=== PATIENT | male | born 1970 | race Caucasian/White ===

== ENCOUNTER 2021-05-12 09:39 | Emergency (ER) | payer OTHER ==
[~2021-05-12] VITALS: Ht 180.3 cm; Wt 96.6 kg
[2021-05-12] MEDS ORDERED: OMEPRAZOLE20 MG PO (09:53)
[2021-05-12] MEDS ORDERED: HUMIRA40 MG/0.1 SUB-Q (10:01)
[2021-05-12] MEDS ORDERED: AZATHIOPRINE50 MG PO (10:05)
[2021-05-12] MEDS ORDERED: FLAGYL500 MG PO (13:34)
[2021-05-12] MEDS ORDERED: LEVOFLOXACIN500 MG PO (13:34)
--- NOTE | 2021-05-12 14:48 | EKG ---
[facility] [address] [facility] [place] [address] Signed Sinus tachycardia Otherwise normal ECG No previous ECGs available Confirmed by ANTONELLA ODONNELL MD ([id number]) on 05/12/2021 2:48:07 PM Electronically Signed By: ANTONELLA ODONNELL MD 05/12/21 1448 PATIENT NAME: RAFAEVERTON LEEROY Electrocardiogram DATE OF : 68 PHYSICIAN: ANTONELLA ODONNELL MD REPORT #: [id number] REPORT IS CONFIDENTIAL AND NOT TO BE RELEASED WITHOUT AUTHORIZATION
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
== END 2021-05-12 14:28 | disposition home or self-care (01) ==
LOC: ED 09:39
DX: K81.9 Cholecystitis, unspecified (principal); R07.2 Precordial pain; Z88.5 Allergy status to narcotic agent; Z79.899 Other long term (current) drug therapy
CPT/HCPCS: 71045; 76705; 80053; 81001; 83690; 84484; 85025; 93005; 93010; 99285-25; J7030

== ENCOUNTER 2021-05-14 09:57 | Observation (INO) | payer OTHER ==
[~2021-05-14] VITALS: Ht 180.3 cm; Wt 96.6 kg
[~2021-05-14 09:57] MED LIST: AZATHIOPRINE50 MG PO; FLAGYL500 MG PO; HUMIRA40 MG/0.1 SUB-Q; LEVOFLOXACIN500 MG PO; OMEPRAZOLE20 MG PO
--- OUTSIDE RECORDS SUMMARY | 2021-05-14 10:04 | XMS ---
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 Abigail has no Care Guidelines for this patient. Dimitri VISIT COUNT (12 MO.) [address] [facility] TOTAL 2 NOTE: Visits indicate total known visits. ED/C VISIT TRACKING (12 MO.) 05/14/2021 09:[address] [facility] [place] TYPE: Emergency COMPLAINT: - ABD PAIN 05/12/2021 09:41 [facility] [place] TYPE: Emergency COMPLAINT: - CHEST PAIN, NAUSEA INPATIENT VISIT TRACKING (12 MO.) No inpatient visits to display in this time frame [email or web address]
--- NOTE | 2021-05-14 12:20 | NUR ---
Report recieved from PENELOPE Rose, waiting for results of pt's COVID swab before transfering to Med-Surg floor.
--- NOTE | 2021-05-14 13:01 | NUR ---
ER CALLED TO REPORT THAT THE PT WILL BE GOING DIRECTLY TO THE OR FOR SURGERY AND THEN WILL [facility] FOLLOWING SURGERY.
--- NOTE | 2021-05-14 15:14 | NUR ---
05/14/21 1514 Anyi Barbosa 1510- PT ARRIVES TO PACU NONAROUSABLE TO NOXIOUS STIMULI WITH AN OPA IN PLACE. RESP EVEN AND UNLABORED. OXYGEN SAT HIGH 90'S TO 100% ON 6L VIA MASK.
--- NOTE | 2021-05-14 15:54 | NUR ---
PT. ARRIVED FROM PACU VIA STRETCHER AND REPORT RECEIVED FROM RN. PT. IS ALERT AND ORIENTED. VITALS TAKEN AND PRIMARY RN ARRIVED AND RESUMED CARE.
[2021-05-14] MEDS ORDERED: HYDROCODON-ACE1 EAC8 PO (16:19)
--- NOTE | 2021-05-14 16:20 | NUR ---
PT ARRIVED FROM PACU. PT ALERT AND ORIENTED. VSS. PT ON ROOM AIR, LUNG SOUNDS CLEAR. BOWEL TONES ACTIVE, REPORT OF NAUSEA, GIVEN 4MG ZOFRAN HE RECENTLY RECEIVED 4MG ZOFRAN IN PACU, FOR A TOTAL OF 8MG ZOFRAN. PT WITH LAP SITES X4, SMALL AMOUNT OF SHADOWING TO UPPER RUQ LAP SITE. D5LR INFUSING AT 100ML/HR. PROVIDED WITH RX FOR NORCO TO BE FILLED AT PHARMACY, DISCUSSED THAT PT COULD DISCHARGE IF MEETS CRITERIA AND IS FEELING UP TO LEAVING. RN GHASSAN ASSISTING PT TO BATHROOM.
[2021-05-14] MEDS ORDERED: HUMIRA PEN40 MG/0.4 SUB-Q (16:51)
--- NOTE | 2021-05-14 16:54 | NUR ---
MED REC COMPLETE
[2021-05-14] MEDS ORDERED: BENADRYL25 MG PO (17:20)
--- NOTE | 2021-05-14 18:57 | EKG ---
[facility] [address] [facility] [place], [place] [address] Signed Normal sinus rhythm Normal ECG Confirmed by ANTONELLA ODONNELL MD ([id number]) on 05/14/2021 6:57:39 PM Electronically Signed By: ANTONELLA ODONNELL MD 05/14/21 1857 PATIENT NAME: RAFAEVERTON Electrocardiogram DATE OF : [birth year] PHYSICIAN: ANTONELLA ODONNELL MD REPORT #: [id number] REPORT IS CONFIDENTIAL AND NOT TO BE RELEASED WITHOUT AUTHORIZATION
--- NOTE | 2021-05-14 19:10 | NUR ---
PT SITTING UP IN BE SAFELY W/ CALL LIGHT IN REACH. PT WATCHING TV. PT C/O PAIN, PRN PAIN MEDS GIVEN PER PT REQUEST/PROVIDER ORDER. PT DENIES NAUSEA. PT'S BROUGHT HIM FOOD AND PT IS EATING RIGHT NOW.
--- NOTE | 2021-05-14 19:25 | NUR ---
REPORT RECEIVED BY DAY SHIFT RN. PT LYING IN BED ALERT AND ORIENTED EATING [employer] NUGGETS. GATORADE PROVIDED PER REQUEST. REPORTS PAIN AND NAUSEA ARE TOLERABLE AT THIS TIME. DENIES NEEDS. WHITE BOARD UPDATED. CALL LIGHT IN REACH.
--- NOTE | 2021-05-14 21:30 | NUR ---
EVENING ASSESSMENT COMPLETE. PRN FOR PAIN ADMINISTERED FOR REPORTED 5/10 ABD PAIN. PT DENIES NAUSEA. LAP SISTES X 4 COVERED WITH GAUZE. SCANT AMOUNT SEROSANG DRAINAGE NOTED. ABD SOFT AND NON DISTENDED. BT ACTIVE. PT REPORTS HE HAS BEEN AMB INDEPENDENTLY TO BR. ENCOURAGED TO CALL IF NEEDS ASSISTANCE. PT RECEPTIVE. SIGNIFICANT OTHER IN ROOM. LINENS PROVIDED FOR HER TO SLEEP. PT DENIES QUESTIONS OR CONCERNS AT THIS TIME. CALL LIGHT IN REACH.
--- NOTE | 2021-05-14 23:16 | NUR ---
PT RESTING ON LEFT SIDE WITH EYES CLOSED. 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 SpO2 96% ON RA. HR 70'S. PT REPORTS PAIN IS TOLERABLE. DENIES NEEDS.
--- NOTE | 2021-05-15 02:34 | NUR ---
CALL LIGHT ANSWERED. IV PUMP ALARMING, RESOLVED. NEW BAG IVF INFUSING WNL. PT REPORTS PAIN IS TOLERABLE AT THIS TIME. DENIES PRN FOR PAIN. DENIES NAUSEA. VS AND I&O COMPLETE. NO FURTHER NEEDS. CALL LIGHT IN REACH.
--- NOTE | 2021-05-15 04:20 | NUR ---
PT RESTING IN BED WITH EYES CLOSED. RESPIRATIONS EVEN. IVF INFUSING. CALL LIGHT IN REACH.
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
--- NOTE | 2021-05-15 06:30 | NUR ---
VS AND I&O COMPLETE. PO PRN FOR PAIN ADMINISTERED FOR 2/10 "DISCOMFORT". PT DENIES NAUSEA. IVF INFUSING WNL. ABD SOFT AND NON DISTENDED. BOWEL TONES ACTIVE. PT REPORTS FLATUS. LAP SITES X 4 COVERED WTIH GAUZE. SMALL AMOUNT SHADOWING NOTED. REGULAR BREAKFAST ORDERED. SIGNIFICANT OTHER ASLEEP ON COUCH. PT DENIES FURTHER NEEDS. CALL LIGHT IN REACH.
--- NOTE | 2021-05-15 07:50 | NUR ---
Shift report recieved from PENELOPE Espinosa, pt resting in bed w/ call light in reach. Pt denies nausea and states pain is managable.
== END 2021-05-15 08:50 | disposition home or self-care (01) ==
LOC: ED 09:57 → MS 09:58
PROVIDERS: ADMIT Colon & Rectal Surgery; ATTEND Colon & Rectal Surgery
PROC: BF03YZZ Plain Radiography of Gallbladder and Bile Ducts using Other Contrast (ICD-10-PCS; 2021-05-14)
PROC: 0FT44ZZ Resection of Gallbladder, Percutaneous Endoscopic Approach (ICD-10-PCS; principal; 2021-05-14 13:14)
DX: K80.00 Calculus of gallbladder with acute cholecystitis without obstruction (principal); K21.9 Gastro-esophageal reflux disease without esophagitis; K51.90 Ulcerative colitis, unspecified, without complications; Z88.5 Allergy status to narcotic agent; Z20.822 Contact with and (suspected) exposure to COVID-19
CPT/HCPCS: 00790; 74300; 80053; 83690; 85025; 93005; 93010; 96365; 96375; 96376; 99285-25; C9803; G0378; J1170; J1644; J1885; J1956; J2405; J2550; J3010; J7121; Q9967; U0003